=== PATIENT | female | born 1955 | race Caucasian/White ===

== ENCOUNTER → 2020-12-16 | Outpatient (CLI) | payer OTHER ==
[~2020-12-16] MED LIST: ALBUTEROL SULFATE 0.083% 2.5 MG/3 ML INH IH ONE
== END | disposition home or self-care (01) ==
LOC: RESP 08:10
PROVIDERS: ATTEND Orthopaedic Surgery
DX: J06.9 Acute upper respiratory infection, unspecified (principal)
CPT/HCPCS: 94060